=== PATIENT | male | born 1975 | race Two or more races ===

== ENCOUNTER 2019-09-21 05:02 | Inpatient (IN) | payer SELFPAY ==
[~2019-09-21] VITALS: Ht 170.2 cm; Wt 69.4 kg
[2019-09-21] MEDS ORDERED: NALOXONE PREFILLED SYRINGE 2 MG/2 ML SYRINGE ONE (05:10)
--- NOTE | 2019-09-21 05:11 | NUR ---
PT AAOX0. BIB [employer] FROM PRISON. ARRESTED FOR STEALING [employer]AGES. PT WAS UNCONCIOUS IN PRISON AND FOUND WITH 3 HEROIN NEEDLES. PLACED IN BED 9, ON MONITOR AND PULSE OX. VSS. SILVA AT BEDSIDE FOR EVAL.
--- NOTE | 2019-09-21 05:13 | NUR ---
LABS AND URINE PICKED UP BY ECHO TECHNICIAN
[2019-09-21] MEDS ORDERED: ONDANSETRON HCL/PF 4 MG/2 ML VIAL ONE ×2 (05:15→05:19)
[2019-09-21 05:22] LABS: BASOPHILS % (AUTO) 0.6 % (0.0-2.0); EOSINOPHILS % (AUTO) 0.5 % (0.0-6.0); HEMATOCRIT 35 % (39-51); HEMOGLOBIN 11.1 g/dL (13.5-17.5); LYMPHOCYTES # (AUTO) 1.6 /CMM (0.8-4.8); LYMPHOCYTES % (AUTO) 28.9 % (20.0-44.0); MEAN CORPUSCULAR HGB CONC 32 g/dl (31.0-36.0); MEAN CORPUSCULAR VOLUME 81 fL (80-96); MONOCYTES # (AUTO) 0.3 /CMM (0.1-1.30); MONOCYTES % (AUTO) 5.2 % (2.0-12.0); NEUTROPHILS # (AUTO) 3.6 /CMM (1.8-8.9); NEUTROPHILS % (AUTO) 64.8 % (43.0-81.0); PLATELET COUNT (AUTO) 287 /CMM (150-450); RED BLOOD CELL COUNT(AUTO) 4.24 MIL/uL (4.5-6.0); WHITE BLOOD COUNT (AUTO) 5.6 K/uL (4.3-11.0)
[2019-09-21 05:26] LABS: APPEARANCE,URINE CLEAR (CLEAR); BILIRUBIN,URINE NEGATIVE (NEGATIVE); BLOOD, URINE NEGATIVE Ery/uL (NEGATIVE); COLOR,URINE YELLOW (YELLOW); KETONES,URINE NEGATIVE (NEGATIVE); LEUKOCYTE ESTERASE ,URINE NEGATIVE (NEGATIVE); NITRITE, URINE NEGATIVE (NEGATIVE); PROTEIN,URINE NEGATIVE (NEGATIVE); UGLUCOSE NEGATIVE (NEGATIVE); UROBILINOGEN,URINE 0.2 EU/dL (0.2)
[2019-09-21] MEDS ORDERED: NALOXONE PREFILLED SYRINGE 2 MG/2 ML SYRINGE IV ONE (05:30)
[2019-09-21] MEDS ORDERED: ONDANSETRON HCL/PF 4 MG/2 ML VIAL IV ONE ×2 (05:30)
[2019-09-21 05:34] LABS: CALCIUM, SERUM 9.2 mg/dL (8.5-10.1); CARBON DIOXIDE 30 mmol/L (21-32); CHLORIDE 99 mmol/L (98-107); CREATININE 0.8 mg/dL (0.6-1.3); GLUCOSE 96 mg/dL (74-106); POTASSIUM 4.1 mmol/L (3.5-5.1); SODIUM SERUM 138 mmol/L (136-145); UREA NITROGEN, BLOOD 18 mg/dL (7-18)
[2019-09-21 05:39] LABS: ACETAMINOPHEN 0 ug/ml (10-30); ALANINE AMINOTRANSFERASE 61 U/L (12-78); ALBUMIN 3.4 g/dL (3.4-5.0); ALCOHOL, BLOOD < 3 mg/dL (0-0); ALKALINE PHOSPHATASE 81 U/L (46-116); ASPARTATE AMINOTRANSFERASE 45 U/L (15-37); BILIRUBIN,DIRECT 0.1 mg/dL (0.0-0.2); BILIRUBIN,TOTAL 0.3 mg/dL (0.2-1.0); SALICYLATE 3.4 mg/dL (2.8-20.0); TOTAL PROTEIN, SERUM 8.6 g/dL (6.4-8.2)
[2019-09-21] MEDS ORDERED: IV NS 0.9% 1,000 ML IV ONE ×2 (06:30→07:00)
--- NOTE | 2019-09-21 07:04 | NUR ---
[employer] AT BEDSIDE.
--- NOTE | 2019-09-21 07:22 | NUR ---
ENDORSEMENT RECEIVED FROM WILLIAM DAMIAN FOR RICHARD. PATIENT IN BED, HOOKED TO MONITOR, [employer] AT BEDSIDE, WILL CONTINUE TO MONITOR ACCORDINGLY.
--- NOTE | 2019-09-21 07:32 | NUR ---
PATIENT AROUSABLE BY PAINFUL STIMULI. MADE AWARE
--- NOTE | 2019-09-21 08:06 | NUR ---
PATIENT IN BED, AROUSABLE BY PAINFUL STIMULI, HOOKED TO MONITOR, VSS. WILL CONTINUE TO MONITOR ACCORDINGLY.
--- NOTE | 2019-09-21 09:03 | NUR ---
[facility] CALLED [facility]
--- NOTE | 2019-09-21 09:56 | NUR ---
REPORT GIVEN TO ZULMA DAMIAN FO TELE UNIT
--- NOTE | 2019-09-21 10:37 | NUR ---
MOVE SHEET GIVEN TO ADMITTING
--- NOTE | 2019-09-21 10:40 | NUR ---
RN ADMITTING NOTES ADMITTED A 44 YEARS OLD, M, TO UNIT VIA GURNEY ACCOMPANIED BY E.R STAFF AND 2 SAP TECHNICAL DEVELOPER. UNABLE TO OBTAIN ANY INFORMATION, PATIENT IS TOO LETHARGIC, ON RA, TOLERATING WELL, V/S TAKEN, STABLE AND RECORDED. LUNGS CLEAR ON AUSCULTATION, IV ACCESS ON RIGHT HAND #20, PATENT AND INTACT. SAFETY MEASURES INITIATED, BED PLACED IN LOWEST LOCKED POSITION WITH SIDE RAIS UP X2. CALL LIGHT PLACED WITHIN EASY REACH. NOTIFY [facility] PEOPLES REGARDING ADMISSION, AWAITING FOR ORDERS, WILL CONTINUE TO MONITOR AND F/U.
--- NOTE | 2019-09-21 12:00 | NUR ---
RN NOTES SKIN ASSESSMENT DONE, PICTURES TAKEN AND FILED ON CHART. WILL CONTINUE TO MONITOR.
--- NOTE | 2019-09-21 13:40 | NUR ---
RN NOTES SEEN AND EXAMINED BY DR. PEOPLES AT BEDSIDE, PER DR. PEOPLES TO START 0.9% NS AND RUN 125 ML/HR. WILL CONTINUE TO MONITOR.
[2019-09-21 16:00] VITALS: BP 129/68
[2019-09-21] MEDS ORDERED: IV NS 0.9% 1,000 ML IV PRN (20:00)
[2019-09-21 20:50] VITALS: BP 106/67
--- NOTE | 2019-09-22 06:12 | NUR ---
MS RN NOTES AWAKE & RESPONSIVE. NOT IN ANY DISTRESS. NO SOB NOTED. DENIES ANY PAIN OR DISCOMFORT AT THIS TIME. WITH IVF INFUSING WELL. AM CARE DONE. MONITORED ACCORDINGLY. CALL LIGHT WITHIN REACH. BED IN LOWEST POSITION. SR UP X 2 FOR SAFETY. WILL ENDORSE TO NEXT SHIFT.
[2019-09-22 08:00] VITALS: BP 131/71
--- NOTE | 2019-09-22 15:40 | NUR ---
Patient cleared for d/t to home by . Patient awake alert and oriented x3, patient will go to he's sister house on [address]. Taxi voucher provided. Patient refused d/c education and instructions. Patient refused d/c pictures. Patient sighed paperwork and valuable form; all belongings with the patient including archer , prepaid card, wallet. Patient provided with clean pants and shirt. IV line removed , wrist band removed. Patient safely transferred to [facility] via wheelchair accompanied by Reynaldo PRINCE
== END 2019-09-22 15:40 | disposition home or self-care (01) | DRG 918 ==
LOC: ER 05:03 → TELE 10:45 → MED 20:47
PROVIDERS: ADMIT Nurse Practitioner Acute Care; ATTEND Nurse Practitioner Acute Care
DX: T50.911A Poisoning by multiple unspecified drugs, medicaments and biological substances, accidental (unintentional), initial encounter (principal); F17.210 Nicotine dependence, cigarettes, uncomplicated; Z76.5 Malingerer [conscious simulation]; Y92.89 Other specified places as the place of occurrence of the external cause
CPT/HCPCS: 36415; 80048-TC; 80076-TC; 80305; 81000-TC; 82962-TC; 85025-TC; 87081-TC; G0378; G0480; J2310; J2405; J7030